=== PATIENT | female | born 1945 | race Caucasian/White ===

== ENCOUNTER → 2017-01-25 | Outpatient (CLI) | payer MEDICARE, BC | LOC: LAB 12:21 | DX: I25.10 Atherosclerotic heart disease of native coronary artery without angina pectoris (principal); L30.9 Dermatitis, unspecified; D59.9 Acquired hemolytic anemia, unspecified ==

== ENCOUNTER → 2017-03-17 | Outpatient (CLI) | payer MEDICARE, BC | LOC: LAB 14:51 | DX: D50.8 Other iron deficiency anemias (principal); I10 Essential (primary) hypertension; B02.30 Zoster ocular disease, unspecified; L30.9 Dermatitis, unspecified ==

== ENCOUNTER → 2018-02-14 | Outpatient (CLI) | payer MEDICARE, BC ==
[2017-09-16 20:41] VITALS: BP 226/107
[2018-02-14 09:31] LABS: BUN/CREATININE RATIO 21.5 (6.0-26.0); CALCIUM 9.2 mg/dL (8.4-10.2); POTASSIUM 4.7 mmol/L (3.6-5.0)
== END ==
LOC: LAB 09:03
PROVIDERS: Nurse Practitioner Women's Health
DX: I50.32 Chronic diastolic (congestive) heart failure (principal); I73.9 Peripheral vascular disease, unspecified; E55.9 Vitamin D deficiency, unspecified

== ENCOUNTER → 2018-03-03 | Outpatient (CLI) | payer MEDICARE, BC ==
[2017-09-16 20:41] VITALS: BP 226/107
[2018-03-03 17:14] LABS: BUN/CREATININE RATIO 18.6 (6.0-26.0); CALCIUM 8.6 mg/dL (8.4-10.2); POTASSIUM 4.3 mmol/L (3.6-5.0)
== END ==
LOC: LAB 16:41
DX: I50.32 Chronic diastolic (congestive) heart failure (principal)

== ENCOUNTER 2018-11-24 10:49 | Emergency (ER) | payer MEDICARE, BC ==
[~2018-11-24] VITALS: Wt 71.9 kg
[2018-11-24] MEDS ORDERED: ELIQUIS5 MG PO (11:30)
[2018-11-24] MEDS ORDERED: CARVEDILOL12.5 MG PO (11:30)
[2018-11-24] MEDS ORDERED: CLOPIDOGREL75 M2 PO (11:30)
[2018-11-24] MEDS ORDERED: ASPIRIN 81M81 MG/TA2 PO (11:30)
[2018-11-24] MEDS ORDERED: REPATHA SU140 MG/1 M SQ (11:31)
[2018-11-24] MEDS ORDERED: FUROSEMIDE20 MG PO (11:31)
[2018-11-24] MEDS ORDERED: ISOSORBIDE MONO60 M2 PO (11:32)
[2018-11-24] MEDS ORDERED: HYDRALAZINE HYD50 MG PO (11:32)
[2018-11-24] MEDS ORDERED: PANTOPRAZOLE SO40 MG PO (11:32)
[2018-11-24] MEDS ORDERED: ALBUTEROL2.5 MG/3 M IH (11:32)
[2018-11-24] MEDS ORDERED: NITROGLYCERIN0.4 M1 SL (11:33)
[2018-11-24 12:02] LABS: HEMATOCRIT 31.2 % (37.0-47.0); MEAN CELL VOLUME 89 fl (78-100); MEAN CORPUSCULAR HEMOGLOBIN 26 pg (27-31); MEAN CORPUSCULAR HGB CONC 29 g/dL (33-37); MEAN PLATELET VOLUME 10.9 fl (7.4-10.4); PLATELET COUNT 158 K/mm3 (130-400); RED CELL DISTRIBUTION WIDTH 16.2 % (11.5-14.5); WHITE BLOOD COUNT 6.5 K/mm3 (4.8-10.8)
[2018-11-24 12:03] LABS: HYPOCHROMIA 1+; LYMPHOCYTE 7 % (20-51); MONOCYTE 12 % (3-10); NEUTROPHILS 81 % (42-75)
[2018-11-24 12:04] LABS: ALBUMIN 3.4 g/dL (3.5-5.0); CALCIUM 8.6 mg/dL (8.4-10.2); POTASSIUM 3.5 mmol/L (3.6-5.0); TOTAL BILIRUBIN 0.5 mg/dL (0.2-1.3); TOTAL PROTEIN 6.1 g/dL (6.3-8.2)
[2018-11-24 12:05] LABS: D-DIMER 0.74 mg/L FEU (0.15-0.50)
[2018-11-24 12:26] LABS: TROPONIN-I 0.1 ng/mL (0.00-0.06)
[2018-11-24 13:50] LABS: URINE APPEARANCE CLEAR; URINE BILIRUBIN NEGATIVE (NEGATIVE); URINE BLOOD NEGATIVE (NEGATIVE); URINE COLOR YELLOW; URINE GLUCOSE NEGATIVE (NEGATIVE); URINE KETONE NEGATIVE (NEGATIVE); URINE LEUKOCYTE ESTERASE NEGATIVE (NEGATIVE); URINE MUCUS PRESENT (NOT PRESENT); URINE NITRATE NEGATIVE (NEGATIVE); URINE PROTEIN(semi-quant) TRACE mg/dL (NEGATIVE); URINE UROBILINOGEN NORMAL (NORMAL)
[2018-11-24 14:00] VITALS: BP 169/68
== END 2018-11-24 13:59 | disposition short-term general hospital (02) ==
LOC: ED 10:49
PROVIDERS: Nurse Practitioner Family
DX: I50.1 Left ventricular failure, unspecified (principal); R79.89 Other specified abnormal findings of blood chemistry; J44.9 Chronic obstructive pulmonary disease, unspecified; E78.5 Hyperlipidemia, unspecified; I13.0 Hypertensive heart and chronic kidney disease with heart failure and stage 1 through stage 4 chronic kidney disease, or unspecified chronic kidney disease; N18.9 Chronic kidney disease, unspecified; I25.10 Atherosclerotic heart disease of native coronary artery without angina pectoris; I48.91 Unspecified atrial fibrillation; F17.210 Nicotine dependence, cigarettes, uncomplicated; I25.2 Old myocardial infarction; Z79.01 Long term (current) use of anticoagulants; Z79.82 Long term (current) use of aspirin; Z79.02 Long term (current) use of antithrombotics/antiplatelets; Z90.49 Acquired absence of other specified parts of digestive tract; Z90.710 Acquired absence of both cervix and uterus; Z95.5 Presence of coronary angioplasty implant and graft
CPT/HCPCS: J1940; J7030

== ENCOUNTER → 2018-12-15 | Outpatient (CLI) | payer MEDICARE, BC ==
[2018-11-24 14:00] VITALS: BP 169/68
[~2018-12-15] MED LIST: ALBUTEROL2.5 MG/3 M IH; ASPIRIN 81M81 MG/TA2 PO; CARVEDILOL12.5 MG PO; CLOPIDOGREL75 M2 PO; ELIQUIS5 MG PO; FUROSEMIDE20 MG PO; HYDRALAZINE HYD50 MG PO; ISOSORBIDE MONO60 M2 PO; NITROGLYCERIN0.4 M1 SL; PANTOPRAZOLE SO40 MG PO; REPATHA SU140 MG/1 M SQ
[2018-12-15 14:00] LABS: CALCIUM 7.8 mg/dL (8.4-10.2); POTASSIUM 3.6 mmol/L (3.6-5.0)
== END ==
LOC: LAB 12:42
PROVIDERS: Nurse Practitioner Family
DX: I50.33 Acute on chronic diastolic (congestive) heart failure (principal); N18.3 Chronic kidney disease, stage 3 (moderate)

== ENCOUNTER → 2019-01-03 | Outpatient (CLI) | payer MEDICARE, BC ==
[2019-01-03 16:55] LABS: MEAN CELL VOLUME 90 fl (78-100); MEAN CORPUSCULAR HEMOGLOBIN 25 pg (27-31); MEAN PLATELET VOLUME 10.7 fl (7.4-10.4); PLATELET COUNT 260 K/mm3 (130-400); RED BLOOD COUNT 3.12 M/mm3 (4.10-5.30); WHITE BLOOD COUNT 7.4 K/mm3 (4.8-10.8)
[2019-01-03 17:09] LABS: ALBUMIN 4.1 g/dL (3.5-5.0); CALCIUM 9.1 mg/dL (8.4-10.2); POTASSIUM 4.5 mmol/L (3.6-5.0); TOTAL BILIRUBIN 0.4 mg/dL (0.2-1.3); TOTAL PROTEIN 6.8 g/dL (6.3-8.2)
[2019-01-03 17:22] LABS: HEMOGLOBIN 7.9 g/dL (12.5-16.0); MEAN CORPUSCULAR HGB CONC 28 g/dL (33-37); RED CELL DISTRIBUTION WIDTH 20.6 % (11.5-14.5)
[2019-01-03 17:30] LABS: LYMPHOCYTE 16 % (20-51); MONOCYTE 6 % (3-10); NEUTROPHILS 75 % (42-75)
[2019-01-03 17:31] LABS: HYPOCHROMIA 2+
[2019-01-03 18:24] LABS: ERYTHROCYTE SEDIMENTATION RATE 42 mm/hr (0-30)
== END ==
LOC: LAB 16:34
PROVIDERS: Internal Medicine
DX: D64.9 Anemia, unspecified (principal); K90.9 Intestinal malabsorption, unspecified; R20.2 Paresthesia of skin; I10 Essential (primary) hypertension; I25.10 Atherosclerotic heart disease of native coronary artery without angina pectoris

== ENCOUNTER → 2019-01-05 | Outpatient (CLI) | payer MEDICARE, BC | LOC: LAB 15:57 | DX: D64.9 Anemia, unspecified (principal); I25.10 Atherosclerotic heart disease of native coronary artery without angina pectoris; I10 Essential (primary) hypertension ==

== ENCOUNTER → 2019-01-10 | Outpatient (CLI) | payer MEDICARE, BC ==
[2019-01-10 12:48] LABS: EOS # 0.1 (0.04-0.40); EOS % 1.5 % (1.0-5.0); HEMATOCRIT 32.9 % (37.0-47.0); HEMOGLOBIN 9.4 g/dL (12.5-16.0); LYMPH# 0.9 (1.50-4.00); MEAN CELL VOLUME 91 fl (78-100); MEAN CORPUSCULAR HEMOGLOBIN 26 pg (27-31); MEAN PLATELET VOLUME 10.3 fl (7.4-10.4); MONO # 0.8 (0.20-0.80); NEU # 5.5 (1.40-6.50); PLATELET COUNT 274 K/mm3 (130-400); RED BLOOD COUNT 3.61 M/mm3 (4.10-5.30); WHITE BLOOD COUNT 7.4 K/mm3 (4.8-10.8)
[2019-01-10 12:51] LABS: MEAN CORPUSCULAR HGB CONC 29 g/dL (33-37); RED CELL DISTRIBUTION WIDTH 21.1 % (11.5-14.5)
[2019-01-10 12:59] LABS: CALCIUM 9.7 mg/dL (8.4-10.2); POTASSIUM 5.1 mmol/L (3.6-5.0)
== END ==
LOC: LAB 12:30
PROVIDERS: Internal Medicine
DX: D63.1 Anemia in chronic kidney disease (principal); I25.10 Atherosclerotic heart disease of native coronary artery without angina pectoris; I12.9 Hypertensive chronic kidney disease with stage 1 through stage 4 chronic kidney disease, or unspecified chronic kidney disease; N18.3 Chronic kidney disease, stage 3 (moderate)

== ENCOUNTER → 2019-01-16 | Outpatient (CLI) | payer MEDICARE, BC | LOC: LAB 12:04 | DX: E78.5 Hyperlipidemia, unspecified (principal); Z79.899 Other long term (current) drug therapy ==

== ENCOUNTER → 2019-01-24 | Outpatient (CLI) | payer MEDICARE, BC ==
[2019-01-24 16:24] LABS: BASO # 0.1 (0.02-0.10); EOS # 0.2 (0.04-0.40); EOS % 4.2 % (1.0-5.0); HEMATOCRIT 36.1 % (37.0-47.0); HEMOGLOBIN 10.5 g/dL (12.5-16.0); LYMPH# 0.8 (1.50-4.00); MEAN CELL VOLUME 89 fl (78-100); MEAN CORPUSCULAR HEMOGLOBIN 26 pg (27-31); MONO # 0.6 (0.20-0.80); PLATELET COUNT 201 K/mm3 (130-400); RED BLOOD COUNT 4.05 M/mm3 (4.10-5.30); WHITE BLOOD COUNT 5.8 K/mm3 (4.8-10.8)
[2019-01-24 16:39] LABS: MEAN CORPUSCULAR HGB CONC 29 g/dL (33-37); RED CELL DISTRIBUTION WIDTH 18.6 % (11.5-14.5)
== END ==
LOC: LAB 16:06
PROVIDERS: Internal Medicine
DX: D64.9 Anemia, unspecified (principal); I25.10 Atherosclerotic heart disease of native coronary artery without angina pectoris; I10 Essential (primary) hypertension

== ENCOUNTER → 2019-02-03 | Outpatient (CLI) | payer MEDICARE, BC ==
[2019-02-03 15:41] LABS: ALBUMIN 4.2 g/dL (3.4-4.8); CALCIUM 9.6 mg/dL (8.4-10.2); POTASSIUM 3.9 mmol/L (3.5-5.1)
== END ==
LOC: LAB 13:47
PROVIDERS: Internal Medicine
DX: N18.4 Chronic kidney disease, stage 4 (severe) (principal)

== ENCOUNTER 2019-02-25 12:53 | Outpatient (RCR) | payer MEDICARE, BC ==
[2019-02-14 12:58] VITALS: BP 136/52
[2019-02-17 13:09] VITALS: BP 105/53
[2019-02-20 12:50] VITALS: BP 144/72
[2019-02-22 13:12] VITALS: BP 153/66
[2019-02-22 13:35] VITALS: BP 135/56
[~2019-02-25] VITALS: Ht 157.5 cm; Wt 65.9 kg
[2019-02-25 13:01] VITALS: BP 151/66
== END 2019-02-25 13:30 | disposition home or self-care (01) ==
LOC: AMSURD 12:53
DX: D50.9 Iron deficiency anemia, unspecified (principal)
CPT/HCPCS: J1756

== ENCOUNTER → 2019-03-08 | Day surgery (SDC) | payer MEDICARE, BC ==
[2019-02-25 13:01] VITALS: BP 151/66
== END ==
LOC: MSO 08:13
DX: H25.811 Combined forms of age-related cataract, right eye (principal); D64.9 Anemia, unspecified; M06.9 Rheumatoid arthritis, unspecified; E78.00 Pure hypercholesterolemia, unspecified; I10 Essential (primary) hypertension; Z86.73 Personal history of transient ischemic attack (TIA), and cerebral infarction without residual deficits; Z90.710 Acquired absence of both cervix and uterus; Z95.5 Presence of coronary angioplasty implant and graft; Z79.82 Long term (current) use of aspirin; Z79.02 Long term (current) use of antithrombotics/antiplatelets; Z88.0 Allergy status to penicillin; Z88.7 Allergy status to serum and vaccine; Z88.8 Allergy status to other drugs, medicaments and biological substances
CPT/HCPCS: 00142; J0171; J2250; V2632

== ENCOUNTER → 2019-03-23 | Outpatient (CLI) | payer MEDICARE, BC ==
[2019-02-25 13:01] VITALS: BP 151/66
[2019-03-23 12:37] LABS: EOS # 0.1 (0.04-0.40); EOS % 2.2 % (1.0-5.0); HEMATOCRIT 40.9 % (37.0-47.0); HEMOGLOBIN 12.7 g/dL (12.5-16.0); MEAN CELL VOLUME 90 fl (78-100); MEAN CORPUSCULAR HEMOGLOBIN 28 pg (27-31); MEAN CORPUSCULAR HGB CONC 31 g/dL (33-37); MEAN PLATELET VOLUME 10.8 fl (7.4-10.4); MONO # 0.5 (0.20-0.80); NEU # 4.5 (1.40-6.50); PLATELET COUNT 157 K/mm3 (130-400); RED BLOOD COUNT 4.53 M/mm3 (4.10-5.30); RED CELL DISTRIBUTION WIDTH 17.7 % (11.5-14.5); WHITE BLOOD COUNT 5.8 K/mm3 (4.8-10.8)
[2019-03-23 12:39] LABS: POTASSIUM 4.4 mmol/L (3.5-5.1)
[2019-03-23 12:40] LABS: CALCIUM 9.1 mg/dL (8.3-10.5)
[2019-03-23 12:41] LABS: LYMPH# 0.7 (1.50-4.00)
[2019-03-23 12:42] LABS: TOTAL PROTEIN 6.4 g/dL (6.2-8.1)
[2019-03-23 12:43] LABS: TOTAL BILIRUBIN 0.3 mg/dL (0.2-1.2)
[2019-03-23 13:42] LABS: ERYTHROCYTE SEDIMENTATION RATE 12 mm/hr (0-30)
== END ==
LOC: LAB 12:08
PROVIDERS: Internal Medicine
DX: D63.1 Anemia in chronic kidney disease (principal); N18.4 Chronic kidney disease, stage 4 (severe); I12.9 Hypertensive chronic kidney disease with stage 1 through stage 4 chronic kidney disease, or unspecified chronic kidney disease; I25.10 Atherosclerotic heart disease of native coronary artery without angina pectoris

== ENCOUNTER → 2019-04-04 | Outpatient (CLI) | payer MEDICARE, BC ==
[2019-04-04 11:28] LABS: EOS # 0.1 (0.04-0.40); EOS % 2.3 % (1.0-5.0); HEMATOCRIT 40.1 % (37.0-47.0); HEMOGLOBIN 12.6 g/dL (12.5-16.0); LYMPH# 0.8 (1.50-4.00); MEAN CELL VOLUME 90 fl (78-100); MEAN CORPUSCULAR HEMOGLOBIN 28 pg (27-31); MEAN CORPUSCULAR HGB CONC 31 g/dL (33-37); MEAN PLATELET VOLUME 10.8 fl (7.4-10.4); MONO # 0.6 (0.20-0.80); NEU # 4.4 (1.40-6.50); PLATELET COUNT 179 K/mm3 (130-400); RED BLOOD COUNT 4.46 M/mm3 (4.10-5.30); RED CELL DISTRIBUTION WIDTH 17.6 % (11.5-14.5)
== END ==
LOC: LAB 11:04
DX: K21.9 Gastro-esophageal reflux disease without esophagitis (principal); K59.00 Constipation, unspecified; R19.7 Diarrhea, unspecified

== ENCOUNTER → 2019-04-07 | Outpatient (CLI) | payer MEDICARE, BC | LOC: LAB 11:44 | DX: K21.9 Gastro-esophageal reflux disease without esophagitis (principal); K59.00 Constipation, unspecified; R19.7 Diarrhea, unspecified ==

== ENCOUNTER → 2019-04-20 | Day surgery (SDC) | payer MEDICARE, BC | LOC: MSO 10:26 | DX: D12.5 Benign neoplasm of sigmoid colon (principal); K21.9 Gastro-esophageal reflux disease without esophagitis; K92.1 Melena; K59.00 Constipation, unspecified; E78.00 Pure hypercholesterolemia, unspecified; F17.210 Nicotine dependence, cigarettes, uncomplicated; I25.2 Old myocardial infarction; I11.0 Hypertensive heart disease with heart failure; I50.9 Heart failure, unspecified; J44.9 Chronic obstructive pulmonary disease, unspecified; F41.9 Anxiety disorder, unspecified; D64.9 Anemia, unspecified; N19 Unspecified kidney failure; Z88.0 Allergy status to penicillin; Z88.7 Allergy status to serum and vaccine; Z79.02 Long term (current) use of antithrombotics/antiplatelets | CPT/HCPCS: 00813; J2704; J7120 ==

== ENCOUNTER → 2019-06-07 | Outpatient (CLI) | payer MEDICARE, BC | LOC: LAB 15:00 | DX: R73.02 Impaired glucose tolerance (oral) (principal) ==

== ENCOUNTER → 2019-07-24 | Outpatient (CLI) | payer MEDICARE, BC ==
[2019-07-24 15:00] LABS: HEMATOCRIT 37.9 % (37.0-47.0); HEMOGLOBIN 12.1 g/dL (12.5-16.0); MEAN CELL VOLUME 92 fl (78-100); MEAN CORPUSCULAR HEMOGLOBIN 30 pg (27-31); MEAN CORPUSCULAR HGB CONC 32 g/dL (33-37); MEAN PLATELET VOLUME 10.9 fl (7.4-10.4); PLATELET COUNT 155 K/mm3 (130-400); RED CELL DISTRIBUTION WIDTH 15.6 % (11.5-14.5); WHITE BLOOD COUNT 6.4 K/mm3 (4.8-10.8)
[2019-07-24 15:01] LABS: ALBUMIN 4.3 g/dL (3.4-4.8); POTASSIUM 4.7 mmol/L (3.5-5.1)
[2019-07-24 15:02] LABS: CALCIUM 9.2 mg/dL (8.3-10.5)
[2019-07-24 15:03] LABS: TOTAL PROTEIN 6.8 g/dL (6.2-8.1)
[2019-07-24 15:05] LABS: TOTAL BILIRUBIN 0.3 mg/dL (0.2-1.2)
[2019-07-24 15:30] LABS: LYMPHOCYTE 8 % (20-51); MONOCYTE 9 % (3-10); NEUTROPHILS 81 % (42-75)
== END ==
LOC: LAB 14:38
PROVIDERS: Internal Medicine
DX: D50.8 Other iron deficiency anemias (principal); I25.10 Atherosclerotic heart disease of native coronary artery without angina pectoris; I10 Essential (primary) hypertension

== ENCOUNTER → 2019-10-24 | Outpatient (CLI) | payer MEDICARE, BC ==
[2019-10-24 14:38] LABS: ALBUMIN 4.1 g/dL (3.4-4.8); POTASSIUM 4.7 mmol/L (3.5-5.1)
[2019-10-24 14:39] LABS: CALCIUM 8.6 mg/dL (8.3-10.5)
[2019-10-24 14:41] LABS: TOTAL PROTEIN 6.6 g/dL (6.2-8.1)
[2019-10-24 14:42] LABS: TOTAL BILIRUBIN 0.3 mg/dL (0.2-1.2)
[2019-10-24 14:47] LABS: MAGNESIUM 2.61 mg/dL (1.60-2.60)
[2019-10-24 14:48] LABS: HEMATOCRIT 36.1 % (37.0-47.0); MEAN CELL VOLUME 93 fl (78-100); MEAN CORPUSCULAR HEMOGLOBIN 28 pg (27-31); MEAN CORPUSCULAR HGB CONC 31 g/dL (33-37); MEAN PLATELET VOLUME 10.5 fl (7.4-10.4); PLATELET COUNT 178 K/mm3 (130-400); RED BLOOD COUNT 3.88 M/mm3 (4.10-5.30); RED CELL DISTRIBUTION WIDTH 16.6 % (11.5-14.5); WHITE BLOOD COUNT 6.5 K/mm3 (4.8-10.8)
[2019-10-24 15:15] LABS: LYMPHOCYTE 12 % (20-51); MONOCYTE 9 % (3-10); NEUTROPHILS 75 % (42-75)
== END ==
LOC: LAB 14:17
PROVIDERS: Internal Medicine
DX: I25.10 Atherosclerotic heart disease of native coronary artery without angina pectoris (principal); I11.0 Hypertensive heart disease with heart failure; I50.9 Heart failure, unspecified; D64.9 Anemia, unspecified

== ENCOUNTER 2019-11-16 02:02 | Emergency (ER) | payer MEDICARE, BC ==
[2019-11-16 02:35] LABS: EOS # 0.1 (0.04-0.40); EOS % 2.8 % (1.0-5.0); HEMATOCRIT 36.1 % (37.0-47.0); HEMOGLOBIN 11.1 g/dL (12.5-16.0); MEAN CELL VOLUME 92 fl (78-100); MEAN CORPUSCULAR HEMOGLOBIN 28 pg (27-31); MEAN CORPUSCULAR HGB CONC 31 g/dL (33-37); MONO # 0.6 (0.20-0.80); NEU # 3.7 (1.40-6.50); PLATELET COUNT 172 K/mm3 (130-400); RED BLOOD COUNT 3.91 M/mm3 (4.10-5.30); RED CELL DISTRIBUTION WIDTH 16.3 % (11.5-14.5); WHITE BLOOD COUNT 5.1 K/mm3 (4.8-10.8)
[2019-11-16] MEDS ORDERED: CARVEDILOL25 MG PO (02:36)
[2019-11-16] MEDS ORDERED: RANOLAZINE ER500 MG PO (02:36)
[2019-11-16] MEDS ORDERED: ZAROXOLYN PO (02:37)
[2019-11-16 02:39] LABS: LYMPH# 0.6 (1.50-4.00)
[2019-11-16 02:44] LABS: POTASSIUM 4.2 mmol/L (3.5-5.1)
[2019-11-16] MEDS ORDERED: BROVANA15 MCG/2 M IH (02:44)
[2019-11-16] MEDS ORDERED: PULMICORT0.5 MG/2 M IH (02:45)
[2019-11-16 02:46] LABS: TOTAL PROTEIN 6.2 g/dL (6.2-8.1)
[2019-11-16] MEDS ORDERED: LEXAPRO 10MG10 MG PO (02:47)
[2019-11-16] MEDS ORDERED: BENADRYL 5050 MG/CAP PO (02:47)
[2019-11-16 02:48] LABS: TOTAL BILIRUBIN 0.2 mg/dL (0.2-1.2)
[2019-11-16] MEDS ORDERED: LASIX40 M1 PO (02:48)
[2019-11-16] MEDS ORDERED: MUCUS RELIEF600 MG PO (02:49)
[2019-11-16] MEDS ORDERED: LEVAQUIN 5500 MG/TA1 PO (02:50)
[2019-11-16] MEDS ORDERED: ZESTRIL40 M1 PO (02:51)
[2019-11-16] MEDS ORDERED: OMEPRAZOLE40 MG PO (02:51)
[2019-11-16] MEDS ORDERED: RESTORIL15 MG PO (02:52)
[2019-11-16] MEDS ORDERED: YUPELRI175 MCG/3 IH (02:52)
[2019-11-16] MEDS ORDERED: AMBIEN CR12.5 MG PO (02:53)
[2019-11-16 03:21] LABS: D-DIMER 1.08 mg/L FEU (0.15-0.50)
[2019-11-16 06:04] VITALS: BP 144/60
== END 2019-11-16 06:04 | disposition home or self-care (01) ==
LOC: ED 02:02
PROVIDERS: Physician Assistant
DX: R07.89 Other chest pain (principal); I11.0 Hypertensive heart disease with heart failure; I50.9 Heart failure, unspecified; I48.91 Unspecified atrial fibrillation; I25.2 Old myocardial infarction; J44.9 Chronic obstructive pulmonary disease, unspecified; F17.210 Nicotine dependence, cigarettes, uncomplicated; Z79.82 Long term (current) use of aspirin; Z79.02 Long term (current) use of antithrombotics/antiplatelets; Z86.73 Personal history of transient ischemic attack (TIA), and cerebral infarction without residual deficits; Z95.5 Presence of coronary angioplasty implant and graft; Z88.0 Allergy status to penicillin; Z88.8 Allergy status to other drugs, medicaments and biological substances

== ENCOUNTER → 2020-04-10 | Outpatient (CLI) | payer MEDICARE, BC ==
[~2020-04-10] MED LIST changes: +AMBIEN CR12.5 MG PO; +BENADRYL 5050 MG/CAP PO; +BROVANA15 MCG/2 M IH; +CARVEDILOL25 MG PO; +LASIX40 M1 PO; +LEVAQUIN 5500 MG/TA1 PO; +LEXAPRO 10MG10 MG PO; +MUCUS RELIEF600 MG PO; +OMEPRAZOLE40 MG PO; +PULMICORT0.5 MG/2 M IH; +RANOLAZINE ER500 MG PO; +RESTORIL15 MG PO; +YUPELRI175 MCG/3 IH; +ZAROXOLYN PO; +ZESTRIL40 M1 PO
== END ==
LOC: RAD 14:14 → MAMMO 14:30
DX: Z13.820 Encounter for screening for osteoporosis (principal); M81.0 Age-related osteoporosis without current pathological fracture; M85.80 Other specified disorders of bone density and structure, unspecified site

== ENCOUNTER → 2020-04-17 | Outpatient (CLI) | payer MEDICARE, BC ==
[2020-04-17 10:12] LABS: PROTHROMBIN TIME 11.8 SECONDS (9.0-12.0)
== END ==
LOC: LAB 09:45
PROVIDERS: Internal Medicine
DX: Z51.81 Encounter for therapeutic drug level monitoring (principal); Z79.01 Long term (current) use of anticoagulants

== ENCOUNTER → 2020-04-25 | Outpatient (CLI) | payer MEDICARE, BC ==
[2020-04-25 15:30] LABS: HEMATOCRIT 38.5 % (37.0-47.0); HEMOGLOBIN 11.8 g/dL (12.5-16.0); MEAN CELL VOLUME 94 fl (78-100); MEAN CORPUSCULAR HEMOGLOBIN 29 pg (27-31); MEAN CORPUSCULAR HGB CONC 31 g/dL (33-37); MEAN PLATELET VOLUME 9.8 fl (7.4-10.4); PLATELET COUNT 184 K/mm3 (130-400); RED BLOOD COUNT 4.09 M/mm3 (4.10-5.30); RED CELL DISTRIBUTION WIDTH 17.1 % (11.5-14.5); WHITE BLOOD COUNT 5.8 K/mm3 (4.8-10.8)
[2020-04-25 15:42] LABS: POTASSIUM 3.9 mmol/L (3.5-5.1)
[2020-04-25 15:43] LABS: CALCIUM 9.3 mg/dL (8.3-10.5)
[2020-04-25 15:44] LABS: TOTAL PROTEIN 6.9 g/dL (6.2-8.1)
[2020-04-25 15:46] LABS: TOTAL BILIRUBIN 0.3 mg/dL (0.2-1.2)
[2020-04-25 16:21] LABS: HYPOCHROMIA 1+; LYMPHOCYTE 11 % (20-51); MONOCYTE 9 % (3-10); NEUTROPHILS 79 % (42-75); POLYCHROMASIA 1+
[2020-04-25 17:19] LABS: ERYTHROCYTE SEDIMENTATION RATE 30 mm/hr (0-30)
[2020-04-27 11:26] LABS: VITAMIN D 1,25 DIHYDROXY 6.8 pg/mL (())
== END ==
LOC: LAB 15:12
PROVIDERS: Internal Medicine
DX: M81.0 Age-related osteoporosis without current pathological fracture (principal); I10 Essential (primary) hypertension

== ENCOUNTER → 2020-07-22 | Outpatient (CLI) | payer MEDICARE, BC ==
[2020-07-08 19:07] VITALS: BP 191/82
[~2020-07-22] MED LIST changes: +CALCITRIOL0.5 MCG PO; +FISH OIL1 IU PO; +PRALUENT P75 MG/1 ML SQ; +WARFARIN SOD5 MG PO; +ZOLPIDEM TART10 MG PO
[2020-07-22 17:38] LABS: HEMATOCRIT 25.6 % (37.0-47.0); MEAN CELL VOLUME 87 fl (78-100); MEAN CORPUSCULAR HEMOGLOBIN 27 pg (27-31); MEAN CORPUSCULAR HGB CONC 31 g/dL (33-37); PLATELET COUNT 247 K/mm3 (130-400); RED BLOOD COUNT 2.94 M/mm3 (4.10-5.30); RED CELL DISTRIBUTION WIDTH 18.1 % (11.5-14.5); WHITE BLOOD COUNT 12.5 K/mm3 (4.8-10.8)
[2020-07-22 17:41] LABS: NEUTROPHILS 83 % (42-75)
[2020-07-22 17:42] LABS: LYMPHOCYTE 5 % (20-51); MONOCYTE 10 % (3-10)
[2020-07-22 17:50] LABS: ALBUMIN 3.7 g/dL (3.4-4.8); POTASSIUM 3.4 mmol/L (3.5-5.1)
[2020-07-22 17:51] LABS: CALCIUM 7.5 mg/dL (8.3-10.5)
[2020-07-22 17:52] LABS: TOTAL PROTEIN 6.7 g/dL (6.2-8.1)
[2020-07-22 17:54] LABS: TOTAL BILIRUBIN 0.4 mg/dL (0.2-1.2)
[2020-07-22 18:02] LABS: PROTHROMBIN TIME 14.2 SECONDS (9.0-12.0)
== END ==
LOC: LAB 17:26
PROVIDERS: Internal Medicine
DX: I25.10 Atherosclerotic heart disease of native coronary artery without angina pectoris (principal); I10 Essential (primary) hypertension; K92.1 Melena; D64.9 Anemia, unspecified; M81.0 Age-related osteoporosis without current pathological fracture

== ENCOUNTER → 2020-08-06 | Outpatient (CLI) | payer MEDICARE, BC ==
[2020-07-08 19:07] VITALS: BP 191/82
[2020-08-06 10:10] LABS: HEMATOCRIT 28.5 % (37.0-47.0); HEMOGLOBIN 8.3 g/dL (12.5-16.0); MEAN CELL VOLUME 96 fl (78-100); MEAN CORPUSCULAR HEMOGLOBIN 28 pg (27-31); MEAN PLATELET VOLUME 10.4 fl (7.4-10.4); PLATELET COUNT 161 K/mm3 (130-400); RED BLOOD COUNT 2.98 M/mm3 (4.10-5.30); WHITE BLOOD COUNT 6.7 K/mm3 (4.8-10.8)
[2020-08-06 10:35] LABS: MEAN CORPUSCULAR HGB CONC 29 g/dL (33-37)
[2020-08-06 10:36] LABS: RED CELL DISTRIBUTION WIDTH 19.6 % (11.5-14.5)
[2020-08-06 10:42] LABS: POTASSIUM 4.6 mmol/L (3.5-5.1)
[2020-08-06 10:44] LABS: CALCIUM 7.1 mg/dL (8.3-10.5)
[2020-08-06 10:50] LABS: MAGNESIUM 1.69 mg/dL (1.60-2.60)
[2020-08-06 11:20] LABS: LYMPHOCYTE 5 % (20-51); METAMYELOCYTE 1 % (0-0); MONOCYTE 7 % (3-10); NEUTROPHILS 85 % (42-75); TEAR DROP CELLS 1+
== END ==
LOC: LAB 09:52
PROVIDERS: Nurse Practitioner Family
DX: I11.0 Hypertensive heart disease with heart failure (principal); I50.32 Chronic diastolic (congestive) heart failure; I48.0 Paroxysmal atrial fibrillation; I25.10 Atherosclerotic heart disease of native coronary artery without angina pectoris

== ENCOUNTER → 2020-08-14 | Outpatient (CLI) | payer MEDICARE, BC ==
[2020-07-08 19:07] VITALS: BP 191/82
[2020-08-14 08:50] LABS: HEMATOCRIT 28.2 % (37.0-47.0); HEMOGLOBIN 8.4 g/dL (12.5-16.0); MEAN CELL VOLUME 95 fl (78-100); MEAN CORPUSCULAR HEMOGLOBIN 28 pg (27-31); MEAN CORPUSCULAR HGB CONC 30 g/dL (33-37); MEAN PLATELET VOLUME 9.4 fl (7.4-10.4); PLATELET COUNT 212 K/mm3 (130-400); RED BLOOD COUNT 2.98 M/mm3 (4.10-5.30)
[2020-08-14 09:00] LABS: RED CELL DISTRIBUTION WIDTH 18.8 % (11.5-14.5)
[2020-08-14 09:07] LABS: ALBUMIN 3.4 g/dL (3.4-4.8); POTASSIUM 3.4 mmol/L (3.5-5.1)
[2020-08-14 09:08] LABS: CALCIUM 8.3 mg/dL (8.3-10.5)
[2020-08-14 09:09] LABS: TOTAL PROTEIN 5.7 g/dL (6.2-8.1)
[2020-08-14 09:11] LABS: TOTAL BILIRUBIN 0.4 mg/dL (0.2-1.2)
[2020-08-14 09:16] LABS: MAGNESIUM 2.04 mg/dL (1.60-2.60)
[2020-08-14 09:32] LABS: LYMPHOCYTE 8 % (20-51); MONOCYTE 9 % (3-10); NEUTROPHILS 82 % (42-75)
[2020-08-14 17:53] LABS: PTH,INTACT 280.1 pg/mL (6.6-88.9)
== END ==
LOC: LAB 08:02
DX: I11.0 Hypertensive heart disease with heart failure (principal); I50.32 Chronic diastolic (congestive) heart failure; I48.0 Paroxysmal atrial fibrillation

== ENCOUNTER → 2020-08-16 | Outpatient (CLI) | payer MEDICARE, BC ==
[2020-07-08 19:07] VITALS: BP 191/82
== END ==
LOC: LAB 10:53
DX: D35.02 Benign neoplasm of left adrenal gland (principal); E83.52 Hypercalcemia

== ENCOUNTER → 2020-08-30 | Outpatient (CLI) | payer MEDICARE, BC ==
[2020-07-08 19:07] VITALS: BP 191/82
[2020-08-30 11:30] LABS: HEMATOCRIT 33.1 % (37.0-47.0); HEMOGLOBIN 9.9 g/dL (12.5-16.0); MEAN CELL VOLUME 94 fl (78-100); MEAN CORPUSCULAR HEMOGLOBIN 28 pg (27-31); MEAN CORPUSCULAR HGB CONC 30 g/dL (33-37); MEAN PLATELET VOLUME 9.8 fl (7.4-10.4); PLATELET COUNT 217 K/mm3 (130-400); RED BLOOD COUNT 3.54 M/mm3 (4.10-5.30); RED CELL DISTRIBUTION WIDTH 17.6 % (11.5-14.5); WHITE BLOOD COUNT 6.1 K/mm3 (4.8-10.8)
[2020-08-30 11:40] LABS: ALBUMIN 3.7 g/dL (3.4-4.8)
[2020-08-30 11:41] LABS: POTASSIUM 4.8 mmol/L (3.5-5.1)
[2020-08-30 11:42] LABS: CALCIUM 8.5 mg/dL (8.3-10.5)
[2020-08-30 11:43] LABS: TOTAL PROTEIN 6.2 g/dL (6.2-8.1)
[2020-08-30 11:45] LABS: TOTAL BILIRUBIN 0.3 mg/dL (0.2-1.2)
[2020-08-30 11:50] LABS: MAGNESIUM 2.33 mg/dL (1.60-2.60)
[2020-08-30 12:20] LABS: BAND 1 % (0-10); LYMPHOCYTE 9 % (20-51); METAMYELOCYTE 1 % (0-0); MONOCYTE 10 % (3-10)
[2020-08-30 12:21] LABS: NEUTROPHILS 77 % (42-75)
== END ==
LOC: LAB 11:11
PROVIDERS: Nurse Practitioner Family
DX: I11.0 Hypertensive heart disease with heart failure (principal); I50.32 Chronic diastolic (congestive) heart failure; I52 Other heart disorders in diseases classified elsewhere; I48.0 Paroxysmal atrial fibrillation

== ENCOUNTER → 2020-09-27 | Outpatient (CLI) | payer MEDICARE, BC ==
[2020-07-08 19:07] VITALS: BP 191/82
[2020-09-27 09:01] LABS: HEMOGLOBIN 10.1 g/dL (12.5-16.0); MEAN CELL VOLUME 91 fl (78-100); MEAN CORPUSCULAR HEMOGLOBIN 27 pg (27-31); MEAN CORPUSCULAR HGB CONC 30 g/dL (33-37); MEAN PLATELET VOLUME 10.3 fl (7.4-10.4); PLATELET COUNT 208 K/mm3 (130-400); RED BLOOD COUNT 3.72 M/mm3 (4.10-5.30); RED CELL DISTRIBUTION WIDTH 16.1 % (11.5-14.5); WHITE BLOOD COUNT 5.8 K/mm3 (4.8-10.8)
[2020-09-27 09:08] LABS: ALBUMIN 3.8 g/dL (3.4-4.8); POTASSIUM 4.2 mmol/L (3.5-5.1)
[2020-09-27 09:12] LABS: TOTAL BILIRUBIN 0.3 mg/dL (0.2-1.2)
[2020-09-27 09:17] LABS: MAGNESIUM 2.12 mg/dL (1.60-2.60)
[2020-09-27 09:39] LABS: NEUTROPHILS 76 % (42-75)
[2020-09-27 09:40] LABS: LYMPHOCYTE 12 % (20-51); MONOCYTE 10 % (3-10)
== END ==
LOC: LAB 08:22
DX: I10 Essential (primary) hypertension (principal); E78.49 Other hyperlipidemia; K90.9 Intestinal malabsorption, unspecified; Z79.899 Other long term (current) drug therapy

== ENCOUNTER → 2020-10-03 | Outpatient (CLI) | payer MEDICARE, BC ==
[2020-07-08 19:07] VITALS: BP 191/82
== END ==
LOC: LAB 09:27
DX: D35.02 Benign neoplasm of left adrenal gland (principal)

== ENCOUNTER → 2020-12-03 | Outpatient (CLI) | payer MEDICARE, BC ==
[2020-07-08 19:07] VITALS: BP 191/82
[2020-12-03 17:05] LABS: URINE APPEARANCE CLOUDY; URINE BILIRUBIN NEGATIVE (NEGATIVE); URINE BLOOD NEGATIVE (NEGATIVE); URINE COLOR YELLOW; URINE GLUCOSE NEGATIVE (NEGATIVE); URINE KETONE NEGATIVE (NEGATIVE); URINE LEUKOCYTE ESTERASE 1+ (NEGATIVE); URINE MUCUS PRESENT (NOT PRESENT); URINE NITRATE POSITIVE (NEGATIVE); URINE PROTEIN(semi-quant) TRACE mg/dL (NEGATIVE); URINE UROBILINOGEN NORMAL (NORMAL); URINE WBC 31-50 /hpf (0-3)
== END ==
LOC: LAB 16:32
PROVIDERS: Internal Medicine
DX: N39.0 Urinary tract infection, site not specified (principal)

== ENCOUNTER → 2020-12-19 | Outpatient (CLI) | payer MEDICARE, BC ==
[2020-07-08 19:07] VITALS: BP 191/82
[2020-12-19 15:25] LABS: HEMATOCRIT 41.8 % (37.0-47.0); HEMOGLOBIN 12.6 g/dL (12.5-16.0); MEAN CELL VOLUME 86 fl (78-100); MEAN CORPUSCULAR HEMOGLOBIN 26 pg (27-31); MEAN CORPUSCULAR HGB CONC 30 g/dL (33-37); MEAN PLATELET VOLUME 10.8 fl (7.4-10.4); PLATELET COUNT 208 K/mm3 (130-400); RED BLOOD COUNT 4.89 M/mm3 (4.10-5.30); WHITE BLOOD COUNT 5.8 K/mm3 (4.8-10.8)
[2020-12-19 15:29] LABS: POTASSIUM 3.5 mmol/L (3.5-5.1)
[2020-12-19 15:30] LABS: CALCIUM 8.6 mg/dL (8.3-10.5)
[2020-12-19 15:41] LABS: RED CELL DISTRIBUTION WIDTH 18.9 % (11.5-14.5)
[2020-12-19 16:14] LABS: LYMPHOCYTE 10 % (20-51); MONOCYTE 8 % (3-10); NEUTROPHILS 78 % (42-75)
== END ==
LOC: LAB 13:30
PROVIDERS: Nurse Practitioner Family
DX: I11.0 Hypertensive heart disease with heart failure (principal); I50.32 Chronic diastolic (congestive) heart failure; I52 Other heart disorders in diseases classified elsewhere

== ENCOUNTER → 2020-12-31 | Outpatient (CLI) | payer MEDICARE, BC ==
[2020-07-08 19:07] VITALS: BP 191/82
[2020-12-31 16:50] LABS: URINE APPEARANCE HAZY; URINE COLOR YELLOW; URINE PROTEIN(semi-quant) TRACE mg/dL (NEGATIVE)
[2020-12-31 16:51] LABS: URINE BILIRUBIN NEGATIVE (NEGATIVE); URINE BLOOD NEGATIVE (NEGATIVE); URINE GLUCOSE NEGATIVE (NEGATIVE); URINE KETONE NEGATIVE (NEGATIVE); URINE LEUKOCYTE ESTERASE TRACE (NEGATIVE); URINE NITRATE NEGATIVE (NEGATIVE); URINE UROBILINOGEN NORMAL (NORMAL)
== END ==
LOC: LAB 16:14
PROVIDERS: Internal Medicine
DX: R10.84 Generalized abdominal pain (principal); I50.9 Heart failure, unspecified

== ENCOUNTER → 2021-01-13 | Outpatient (CLI) | payer MEDICARE, BC ==
[2020-07-08 19:07] VITALS: BP 191/82
== END ==
LOC: AMSURD 15:01
DX: I48.0 Paroxysmal atrial fibrillation (principal)

== ENCOUNTER → 2021-01-31 | Outpatient (CLI) | payer MEDICARE, BC ==
[2020-07-08 19:07] VITALS: BP 191/82
[2021-01-31 14:51] LABS: POTASSIUM 3.9 mmol/L (3.5-5.1)
[2021-01-31 14:52] LABS: CALCIUM 9.1 mg/dL (8.3-10.5)
== END ==
LOC: LAB 14:20
PROVIDERS: Nurse Practitioner Family
DX: I10 Essential (primary) hypertension (principal)

== ENCOUNTER → 2021-02-24 | Outpatient (CLI) | payer MEDICARE, BC ==
[2021-02-24 15:04] LABS: ALBUMIN 3.9 g/dL (3.4-4.8)
[2021-02-24 15:05] LABS: POTASSIUM 3.5 mmol/L (3.5-5.1)
[2021-02-24 15:06] LABS: CALCIUM 8.5 mg/dL (8.3-10.5)
[2021-02-24 15:07] LABS: TOTAL PROTEIN 6.4 g/dL (6.2-8.1)
[2021-02-24 15:09] LABS: TOTAL BILIRUBIN 0.3 mg/dL (0.2-1.2)
[2021-02-24 15:31] LABS: BASO # 0.05 (0.02-0.10); EOS # 0.09 (0.04-0.40); EOS % 1.7 % (1.0-5.0); HEMATOCRIT 38.1 % (37.0-47.0); HEMOGLOBIN 11.5 g/dL (12.5-16.0); LYMPH# 0.54 (1.50-4.00); MEAN CELL VOLUME 84 fl (78-100); MEAN CORPUSCULAR HEMOGLOBIN 25 pg (27-31); MEAN CORPUSCULAR HGB CONC 30 g/dL (33-37); MEAN PLATELET VOLUME 10.1 fl (7.4-10.4); MONO # 0.58 (0.20-0.80); NEU # 3.83 (1.40-6.50); PLATELET COUNT 183 K/mm3 (130-400); RED BLOOD COUNT 4.54 M/mm3 (4.10-5.30); RED CELL DISTRIBUTION WIDTH 19.8 % (11.5-14.5); WHITE BLOOD COUNT 5.2 K/mm3 (4.8-10.8)
[2021-02-24 22:52] LABS: PTH,INTACT 261.2 pg/mL (6.6-88.9)
== END ==
LOC: LAB 14:29
PROVIDERS: Internal Medicine
DX: I50.9 Heart failure, unspecified (principal); K90.9 Intestinal malabsorption, unspecified; I51.7 Cardiomegaly; E55.9 Vitamin D deficiency, unspecified; D35.02 Benign neoplasm of left adrenal gland; E21.3 Hyperparathyroidism, unspecified; M81.0 Age-related osteoporosis without current pathological fracture; Z95.0 Presence of cardiac pacemaker

== ENCOUNTER → 2021-02-25 | Outpatient (CLI) | payer MEDICARE, BC ==
[2021-02-26 10:50] LABS: URINE TOTAL VOLUME 1525 mL
[2021-03-11 16:58] LABS: CORTISOL,URINE 7.8 mcg/24 h (3.5-45)
== END ==
LOC: LAB 15:22
PROVIDERS: Internal Medicine
DX: D35.02 Benign neoplasm of left adrenal gland (principal); E21.3 Hyperparathyroidism, unspecified; M81.0 Age-related osteoporosis without current pathological fracture

== ENCOUNTER → 2021-06-20 | Outpatient (CLI) | payer MEDICARE, BC ==
[2021-06-20 15:44] LABS: HEMATOCRIT 41.3 % (37.0-47.0); HEMOGLOBIN 12.7 g/dL (12.5-16.0); MEAN CELL VOLUME 91 fl (78-100); MEAN CORPUSCULAR HEMOGLOBIN 28 pg (27-31); MEAN CORPUSCULAR HGB CONC 31 g/dL (33-37); MEAN PLATELET VOLUME 10.1 fl (7.4-10.4); PLATELET COUNT 173 K/mm3 (130-400); RED BLOOD COUNT 4.52 M/mm3 (4.10-5.30); RED CELL DISTRIBUTION WIDTH 17.9 % (11.5-14.5); WHITE BLOOD COUNT 4.7 K/mm3 (4.8-10.8)
[2021-06-20 16:10] LABS: ALBUMIN 3.8 g/dL (3.4-4.8)
[2021-06-20 16:11] LABS: CALCIUM 9.4 mg/dL (8.3-10.5)
[2021-06-20 16:12] LABS: TOTAL PROTEIN 6.5 g/dL (6.2-8.1)
[2021-06-20 16:14] LABS: TOTAL BILIRUBIN 0.3 mg/dL (0.2-1.2)
[2021-06-20 16:19] LABS: MAGNESIUM 2.47 mg/dL (1.60-2.60)
[2021-06-20 17:03] LABS: LYMPHOCYTE 10 % (20-51); MONOCYTE 12 % (3-10); NEUTROPHILS 74 % (42-75)
== END ==
LOC: LAB 15:26
PROVIDERS: Internal Medicine
DX: I10 Essential (primary) hypertension (principal); K90.9 Intestinal malabsorption, unspecified

== ENCOUNTER → 2021-08-15 | Outpatient (CLI) | payer MEDICARE, BC ==
[2021-08-15 16:21] LABS: ALBUMIN 4.1 g/dL (3.4-4.8); POTASSIUM 4.1 mmol/L (3.5-5.1)
[2021-08-15 16:23] LABS: CALCIUM 9.4 mg/dL (8.3-10.5)
[2021-08-15 16:24] LABS: TOTAL PROTEIN 6.8 g/dL (6.2-8.1)
[2021-08-15 16:26] LABS: TOTAL BILIRUBIN 0.4 mg/dL (0.2-1.2)
== END ==
LOC: LAB 15:50
PROVIDERS: Internal Medicine
DX: I10 Essential (primary) hypertension (principal); K90.9 Intestinal malabsorption, unspecified

== ENCOUNTER → 2022-01-23 | Outpatient (CLI) | payer MEDICARE, BC ==
[2022-01-23 12:18] LABS: BASO # 0.03 K/mm3 (0.02-0.10); EOS # 0.09 K/mm3 (0.04-0.40); EOS % 1.9 % (1.0-5.0); HEMATOCRIT 39.3 % (37.0-47.0); LYMPH# 0.41 K/mm3 (1.50-4.00); MEAN CELL VOLUME 99 fl (78-100); MEAN CORPUSCULAR HEMOGLOBIN 30 pg (27-31); MEAN CORPUSCULAR HGB CONC 31 g/dL (33-37); MEAN PLATELET VOLUME 10.4 fl (7.4-10.4); MONO # 0.54 K/mm3 (0.20-0.80); NEU # 3.65 K/mm3 (1.40-6.50); PLATELET COUNT 143 K/mm3 (130-400); RED BLOOD COUNT 3.99 M/mm3 (4.10-5.30); RED CELL DISTRIBUTION WIDTH 15.6 % (11.5-14.5); WHITE BLOOD COUNT 4.9 K/mm3 (4.8-10.8)
[2022-01-23 12:45] LABS: ALBUMIN 3.7 g/dL (3.4-4.8); POTASSIUM 4.3 mmol/L (3.5-5.1)
[2022-01-23 12:47] LABS: TOTAL PROTEIN 6.1 g/dL (6.2-8.1)
[2022-01-23 12:49] LABS: TOTAL BILIRUBIN 0.4 mg/dL (0.2-1.2)
[2022-01-23 12:55] LABS: MAGNESIUM 2.17 mg/dL (1.60-2.60)
[2022-01-24 00:50] LABS: CALCIUM, IONIZED, SERUM 1.25 mmol/L (1.19-1.41)
[2022-01-24 02:23] LABS: PTH,INTACT 263.1 pg/mL (6.6-88.9)
== END ==
LOC: LAB 11:45
PROVIDERS: Internal Medicine
DX: I13.0 Hypertensive heart and chronic kidney disease with heart failure and stage 1 through stage 4 chronic kidney disease, or unspecified chronic kidney disease (principal); N18.4 Chronic kidney disease, stage 4 (severe); I50.9 Heart failure, unspecified; I25.10 Atherosclerotic heart disease of native coronary artery without angina pectoris; K90.9 Intestinal malabsorption, unspecified; E21.3 Hyperparathyroidism, unspecified; E61.1 Iron deficiency

== ENCOUNTER → 2022-03-20 | Outpatient (CLI) | payer MEDICARE, BC | LOC: LAB 13:31 | DX: E03.2 Hypothyroidism due to medicaments and other exogenous substances (principal); I13.0 Hypertensive heart and chronic kidney disease with heart failure and stage 1 through stage 4 chronic kidney disease, or unspecified chronic kidney disease; I50.9 Heart failure, unspecified; F51.04 Psychophysiologic insomnia; J44.9 Chronic obstructive pulmonary disease, unspecified; F41.1 Generalized anxiety disorder; I25.10 Atherosclerotic heart disease of native coronary artery without angina pectoris; E61.1 Iron deficiency; K90.9 Intestinal malabsorption, unspecified; M81.0 Age-related osteoporosis without current pathological fracture; N18.4 Chronic kidney disease, stage 4 (severe); E21.3 Hyperparathyroidism, unspecified; K59.09 Other constipation ==

== ENCOUNTER → 2022-03-20 | Outpatient (CLI) | payer MEDICARE, BC | LOC: AMSURD 12:57 | DX: I44.4 Left anterior fascicular block (principal); I21.9 Acute myocardial infarction, unspecified; Z95.0 Presence of cardiac pacemaker ==

== ENCOUNTER → 2022-07-20 | Outpatient (CLI) | payer MEDICARE, BC | LOC: LAB 10:38 | DX: E03.2 Hypothyroidism due to medicaments and other exogenous substances (principal); I13.0 Hypertensive heart and chronic kidney disease with heart failure and stage 1 through stage 4 chronic kidney disease, or unspecified chronic kidney disease; N18.4 Chronic kidney disease, stage 4 (severe); I50.9 Heart failure, unspecified; F51.04 Psychophysiologic insomnia; J44.9 Chronic obstructive pulmonary disease, unspecified; F41.1 Generalized anxiety disorder; I25.10 Atherosclerotic heart disease of native coronary artery without angina pectoris; E61.1 Iron deficiency; K90.9 Intestinal malabsorption, unspecified; M81.0 Age-related osteoporosis without current pathological fracture; E21.3 Hyperparathyroidism, unspecified ==

== ENCOUNTER → 2022-08-20 | Outpatient (CLI) | payer MEDICARE, BC ==
[2022-08-20 14:26] LABS: POTASSIUM 4.1 mmol/L (3.5-5.1)
[2022-08-20 14:27] LABS: CALCIUM 9.2 mg/dL (8.3-10.5)
== END ==
LOC: LAB 14:03
PROVIDERS: Nurse Practitioner Family
DX: I50.32 Chronic diastolic (congestive) heart failure (principal)

== ENCOUNTER → 2022-09-15 | Outpatient (CLI) | payer MEDICARE, BC ==
[2022-09-15 17:31] LABS: HEMATOCRIT 39.8 % (37.0-47.0); HEMOGLOBIN 12.7 g/dL (12.5-16.0); MEAN CELL VOLUME 96 fl (78-100); MEAN CORPUSCULAR HEMOGLOBIN 31 pg (27-31); MEAN CORPUSCULAR HGB CONC 32 g/dL (33-37); MEAN PLATELET VOLUME 9.9 fl (7.4-10.4); PLATELET COUNT 172 K/mm3 (130-400); RED BLOOD COUNT 4.13 M/mm3 (4.10-5.30); RED CELL DISTRIBUTION WIDTH 14.6 % (11.5-14.5); WHITE BLOOD COUNT 5.2 K/mm3 (4.8-10.8)
[2022-09-15 17:41] LABS: CALCIUM 9.3 mg/dL (8.3-10.5)
[2022-09-15 17:42] LABS: TOTAL PROTEIN 6.4 g/dL (6.2-8.1)
[2022-09-15 17:44] LABS: TOTAL BILIRUBIN 0.4 mg/dL (0.2-1.2)
[2022-09-15 17:49] LABS: MAGNESIUM 2.44 mg/dL (1.60-2.60)
[2022-09-15 19:24] LABS: LYMPHOCYTE 13 % (20-51); MONOCYTE 6 % (3-10); NEUTROPHILS 72 % (42-75)
[2022-09-16 18:02] LABS: PTH,INTACT 310.6 pg/mL (6.6-88.9)
[2022-09-16 19:55] LABS: CALCIUM, IONIZED, SERUM 1.13 mmol/L (1.19-1.41)
== END ==
LOC: LAB 17:18
PROVIDERS: Internal Medicine
DX: E03.2 Hypothyroidism due to medicaments and other exogenous substances (principal); F51.04 Psychophysiologic insomnia; J44.9 Chronic obstructive pulmonary disease, unspecified; F41.1 Generalized anxiety disorder; I25.10 Atherosclerotic heart disease of native coronary artery without angina pectoris; E61.1 Iron deficiency; K90.9 Intestinal malabsorption, unspecified; M81.0 Age-related osteoporosis without current pathological fracture; I13.0 Hypertensive heart and chronic kidney disease with heart failure and stage 1 through stage 4 chronic kidney disease, or unspecified chronic kidney disease; I50.9 Heart failure, unspecified; N18.4 Chronic kidney disease, stage 4 (severe); E21.3 Hyperparathyroidism, unspecified; D35.02 Benign neoplasm of left adrenal gland